=== PATIENT | female | born 1990 | race Hispanic/Latino ===

== ENCOUNTER 2019-10-05 16:17 | Observation (INO) | payer MEDICAID | END 2019-10-05 17:38 | disposition home or self-care (01) | LOC: LDH 16:17 → OBSVTOIN 16:17 → INTOOBSV 16:17 | PROVIDERS: ADMIT Specialist; ATTEND Specialist | DX: O36.8130 Decreased fetal movements, third trimester, not applicable or unspecified (principal); Z3A.38 38 weeks gestation of pregnancy | CPT/HCPCS: 59025; 76819; G0378 ==

== ENCOUNTER 2019-10-15 05:07 | Inpatient (IN) | payer MEDICAID ==
[~2019-10-15] VITALS: Ht 160 cm; Wt 99.8 kg
[2019-10-15] MEDS ORDERED: LACTATED RINGERS 1000ML 1,000 ML IV PRN (05:24)
[2019-10-15] MEDS ORDERED: NALOXONE HCL 0.4 MG/1 ML ML IV PRN (05:45)
[2019-10-15] MEDS ORDERED: ROPIVACAINE 0.2% 100ML VIAL 100 ML EP SCH (05:45)
[2019-10-15] MEDS ORDERED: OXYTOCIN 10 USP UNITS/ML 20 UNIT in LACTATED RINGERS 1000ML 1,000 ML IV SCH (05:45)
[2019-10-15] MEDS ORDERED: EPHEDRINE SULFATE 50 MG/ML AMPULE IVP PRN (05:45)
[2019-10-15] MEDS ORDERED: PROMETHAZINE HCL 25 MG/ML 1ML AMPULE IM PRN (05:45)
[2019-10-15] MEDS ORDERED: MEPERIDINE-PF 50 MG/ML SYG IVP PRN (05:45)
[2019-10-15] MEDS ORDERED: LACTATED RINGERS 500 ML 500 ML IV PRN (05:45)
[2019-10-15 05:56] LABS: APPEARANCE,URINE Cloudy (CLEAR); BILIRUBIN,URINE Negative (NEGATIVE); COLOR,URINE Yellow (YELLOW); GLUCOSE, URINE (UA) Negative (NEGATIVE); KETONES,URINE Negative (NEGATIVE); LEUKOCYTE ESTERASE ,URINE Small (NEGATIVE); NITRATE,URINE Negative (NEGATIVE); OCCULT BLOOD,URINE Negative (NEGATIVE); PROTEIN,URINE POS 1+ mg/dL (NEGATIVE)
[2019-10-15 05:57] LABS: BACTERIA,URINE Few /HPF (None Seen); RBC,URINE 0-1 /HPF (0-1); SQUAMOUS EPITHELIAL CELL,UR Moderate /HPF (0-2)
[2019-10-15 06:05] LABS: HEMATOCRIT 32.4 % (36-48); MEAN CORPUSCULAR HEMOGLOBIN 26.8 pg (27.0-33.0); MEAN CORPUSCULAR HGB CONC 31.5 g/dL (32.0-36.0); MEAN CORPUSCULAR VOLUME 85.3 fL (79-99); RED BLOOD CELL COUNT(AUTO) 3.8 MIL/uL (4.00-5.50); RED CELL DISTRIBUTION WIDTH 14.1 % (11.0-15.5); WHITE BLOOD COUNT (AUTO) 9.1 K/uL (4.8-10.8)
[2019-10-15] MEDS ORDERED: OXYTOCIN-LR 20 UNITS/1000 ML 1,000 ML IV ONE (06:14)
[2019-10-15] MEDS ORDERED: LIDOCAINE HCL 1% 20 ML VIAL ONE (10:25)
[2019-10-15] MEDS ORDERED: ACETAMINOPHEN 325 MG TAB PO PRN (11:00)
[2019-10-15] MEDS ORDERED: BENZOCAINE/LANOLIN/ALOE VERA 60 ML AEROSOL TP PRN (11:00)
[2019-10-15] MEDS ORDERED: MEASLES/MUMPS/RUBELLA VACCINE, LIVE 0.5 ML/VIAL SQ PRN (11:00)
[2019-10-15] MEDS ORDERED: ACETAMINOPHEN-CODEINE 300/30MG TAB PO PRN (11:00)
[2019-10-15] MEDS ORDERED: LANOLIN 30GM OINTMENT TP PRN (11:00)
[2019-10-15] MEDS ORDERED: WITCH HAZEL 1 PAD TP PRN (11:00)
[2019-10-15] MEDS ORDERED: DIPH,PERTUSS(ACELL),TET VAC/PF 0.5 ML VIAL IM PRN (11:00)
[2019-10-15] MEDS ORDERED: OXYTOCIN-LR 20 UNITS/1000 ML 1,000 ML IV SCH (11:00)
[2019-10-15 12:29] VITALS: BP 118/64
[2019-10-15] MEDS: IBUPROFEN 600 MG TABLET PO PRN (16:43)
[2019-10-15 16:51] VITALS: BP 112/60
[2019-10-15 18:39] VITALS: BP 123/61
[2019-10-15] MEDS ORDERED: PREN-68 PO (20:52)
[2019-10-15] MEDS: DOCUSATE SODIUM 100 MG CAP PO SCH (21:02)
[2019-10-15 23:40] VITALS: BP 111/66
[2019-10-16 03:25] VITALS: BP 120/68
[2019-10-16 07:40] VITALS: BP 128/83
[2019-10-16 08:13] LABS: HEPATITIS Bs ANTIGEN SCREEN P Negative (Negative)
[2019-10-16] MEDS: IBUPROFEN 600 MG TABLET PO PRN (08:36)
[2019-10-16] MEDS: DOCUSATE SODIUM 100 MG CAP PO SCH (08:36)
[2019-10-16 11:15] VITALS: BP 123/82
--- NOTE | 2019-10-16 11:35 | NUR ---
verbal and written discharge instructions given. no prescription given. informed that tylenol and ibuprofen are over the counter medications. informed to call the MD office for make a follow up appointment. informed to call the doctor for future concerns. pt voiced understanding to all things discussed. Addendum: 10/16/19 at 1144 by FIORDALIZA MATHEW RN Amended: Links added.
--- NOTE | 2019-10-16 12:25 | NUR ---
pt is dismissed in stable condition, brought to private car via wheelchair Addendum: 10/16/19 at 1227 by FIORDALIZA MATHEW RN Amended: Links added.
== END 2019-10-16 12:25 | disposition home or self-care (01) | DRG 560 ==
LOC: LDH 05:07 → UNDOADMIN 05:07 → WSH 12:27 → PREOBSVTOIN 10-18 05:05
PROVIDERS: ADMIT Specialist; ATTEND Specialist
PROC: 10E0XZZ Delivery of Products of Conception, External Approach (ICD-10-PCS; principal; 2019-10-15)
PROC: 0KQM0ZZ Repair Perineum Muscle, Open Approach (ICD-10-PCS; 2019-10-15)
PROC: 3E033VJ Introduction of Other Hormone into Peripheral Vein, Percutaneous Approach (ICD-10-PCS; 2019-10-15)
PROC: 10907ZC Drainage of Amniotic Fluid, Therapeutic from Products of Conception, Via Natural or Artificial Opening (ICD-10-PCS; 2019-10-15)
PROC: 3E0234Z Introduction of Serum, Toxoid and Vaccine into Muscle, Percutaneous Approach (ICD-10-PCS; 2019-10-15)
DX: O70.1 Second degree perineal laceration during delivery (principal); Z37.0 Single live birth; Z20.828 Contact with and (suspected) exposure to other viral communicable diseases; Z23 Encounter for immunization; Z3A.39 39 weeks gestation of pregnancy
CPT/HCPCS: 36415; 81001; 85027; 86592; 86850; 86900; 86901; 87340; 90715; G0378; J2175; J2550; J2590; U0003

== ENCOUNTER 2023-10-28 20:01 | Emergency (ER) | payer MEDICAID, OTHER ==
[~2023-10-28] VITALS: Ht 157.5 cm; Wt 93.9 kg
[~2023-10-28 20:01] MED LIST: PREN-68 PO
[2023-10-28] MEDS ORDERED: PERM60CR4 TP (20:32)
[2023-10-28 20:53] VITALS: BP 121/89; PULSE 82; RESP 18; O2SAT 98
== END 2023-10-28 20:40 | disposition home or self-care (01) ==
LOC: EDH 20:01
DX: B86 Scabies (principal)
CPT/HCPCS: 99282